=== PATIENT | female | born 1975 | race African-American/Black ===

== ENCOUNTER 2018-03-09 09:21 | Emergency (ER) | payer OTHER | END 2018-03-09 11:17 | disposition home or self-care (01) | LOC: ER 09:21 | DX: S83.92XA Sprain of unspecified site of left knee, initial encounter (principal); X50.9XXA Other and unspecified overexertion or strenuous movements or postures, initial encounter; Y93.89 Activity, other specified; Y99.8 Other external cause status; Y92.89 Other specified places as the place of occurrence of the external cause | CPT/HCPCS: 29505; 73562; 99284-25 ==